=== PATIENT | female | born 1990 | race Caucasian/White ===

== ENCOUNTER 2019-05-12 10:23 | Inpatient (IN) | payer OTHER ==
[2019-05-12] MEDS ORDERED: CARBOPROST TROME 250 MCG/ML IM PRN (11:15)
[2019-05-12] MEDS ORDERED: METHYLERGONOVINE 0.2MG/ML AMP IM PRN (11:15)
[2019-05-12] MEDS ORDERED: Ringers Lactate 1,000 ML IV PRN (11:15)
[2019-05-12 11:56] LABS: Absolute Lymphocytes (CBC) 1.5 K/uL (0.7-4.9); Basophils % 0.3 % (0-1.3); Hematocrit 31.3 % (36.0-45.0); MPV 9.4 fL (7.6-11.3)
[2019-05-12] MEDS ORDERED: OXYTOCIN/LR 20 UNIT/1,000 ML BAG IV SCH (12:00)
[2019-05-12] MEDS ORDERED: Ringers Lactate 1,000 ML IV SCH (12:00)
[2019-05-12 12:07] VITALS: BMI 32.3
[2019-05-12] MEDS ORDERED: FENTANYL CITR 100 MCG/2 ML IV ONE (13:55)
[2019-05-12] MEDS ORDERED: ROPIVACAINE HCL 100 ML IV ONE (13:56)
[2019-05-12] MEDS ORDERED: ROPIVACAINE HCL 0.2% 20ML AMP IV ONE (13:57)
[2019-05-12] MEDS ORDERED: BUPIVACAINE 0.25% PF 10 ML VIAL ONE (14:54)
[2019-05-12] MEDS ORDERED: LIDOCAINE 1% MPF 30 ML VIAL ONE (18:47)
[2019-05-12] MEDS ORDERED: IBUPROFEN 200 MG TAB PO PRN (18:55)
[2019-05-12] MEDS ORDERED: DOCUSATE NA/SENNA CONC 1 TAB PO PRN (18:55)
[2019-05-12] MEDS ORDERED: METHYLERGONOVINE 0.2 MG TAB PO PRN (18:55)
[2019-05-12] MEDS ORDERED: ACETAMINOPHEN 500 MG TAB PO PRN (18:55)
[2019-05-12] MEDS ORDERED: BISACODYL 10 MG RECTAL SUPP RECT PRN (18:55)
[2019-05-12 21:27] LABS: RPR (Rapid Plasma Reagin) NON-REACT (NON-REACT)
--- NOTE | 2019-05-12 22:08 | P.OP ---
Date of Service: 05/12/19 Findings and Operative Technique Patient is a 28 y/o at 39+ weeks gestation who was admitted for elective induction of labor. Patient was given pitocin and artificial rupture of membranes was done, GBS negtaive. Patient received an epidural. Patient then delivered a viable male in cephalic presentation on 05/12/19 at 18:48. Once 's head was delivered, Meli was performed to assist in delivery of the body. Once the infant was delivered the nose and mouth was suctioned with a suction bulb. Delayed cord clamping was done. Infant was then placed on mother's abdomen for skin to skin bonding. Umbilical cord blood was obtained. Placenta was then delivered with gentle traction at 18:50. Placenta was noted to be intact. Perineum was found to be intact. Uterine fundus was massaged and found to be firm. Both mom and baby are doing well. First stage of labor was 6 hours and 59 minutes. Second stage of labor was 4 minutes. APGARS were 8/9. Weight was found to be 8 lb 5 ounces. EBL was 200 cc.
[2019-05-13 05:17] LABS: Absolute Lymphocytes (CBC) 2.3 K/uL (0.7-4.9); Basophils % 0.3 % (0-1.3); Hematocrit 29.8 % (36.0-45.0); Lymphocytes % 17.9 % (15.3-44.8); MPV 9.3 fL (7.6-11.3); RBC Red Blood Cell Count 3.68 M/uL (3.86-4.86)
[2019-05-13] MEDS: Oxycodone HCl/Acetaminophen 1 TAB TAB PO PRN ×2 (07:17→15:43)
[2019-05-13 21:43] VITALS: BP 124/73; TEMP 97.4
[2019-05-15 03:45] LABS: HBsAG Nonreactive (Nonreactive)
== END 2019-05-13 21:15 | disposition home or self-care (01) | DRG 807 ==
LOC: 2ND-WC 10:23
PROVIDERS: ADMIT Student in an Organized Health Care Education/Training Program; ATTEND Student in an Organized Health Care Education/Training Program
PROC: 10E0XZZ Delivery of Products of Conception, External Approach (ICD-10-PCS; principal; 2019-05-12)
PROC: 10907ZC Drainage of Amniotic Fluid, Therapeutic from Products of Conception, Via Natural or Artificial Opening (ICD-10-PCS; 2019-05-12)
PROC: 3E033VJ Introduction of Other Hormone into Peripheral Vein, Percutaneous Approach (ICD-10-PCS; 2019-05-12)
DX: O80 Encounter for full-term uncomplicated delivery (principal); Z37.0 Single live birth; Z3A.39 39 weeks gestation of pregnancy
CPT/HCPCS: 36415; 85025; 86592; 86901; 87340; J2210; J2590; J2795; J3010; J7120